=== PATIENT | male | born 1940 | race Caucasian/White ===

== ENCOUNTER 2023-12-18 11:31 | Emergency (ER) | payer OTHER ==
[2023-12-18 11:41] VITALS: BP 140/80; PULSE 83; RESP 18; TEMP 97.5; BMI 21.1
== END 2023-12-18 14:57 | disposition home or self-care (01) ==
LOC: JER 11:31 → JERFT 11:31
DX: S70.11XA Contusion of right thigh, initial encounter (principal); I83.93 Asymptomatic varicose veins of bilateral lower extremities; X58.XXXA Exposure to other specified factors, initial encounter
CPT/HCPCS: 93970-TC; 99284-25